=== PATIENT | female | born 1960 ===

== ENCOUNTER 2022-03-23 10:53 | Outpatient (CLI) | payer SELFPAY ==
[2022-03-23 13:20] LABS: Chlamydia DNA Amplified* NOT DETECTED (No Detected); GC DNA Amplified* NOT DETECTED (No Detected)
== END 2022-03-23 10:54 | disposition home or self-care (01) ==
PROVIDERS: Visit Provider Obstetrics & Gynecology
DX: N95.0 Postmenopausal bleeding (principal); Z11.3 Encounter for screening for infections with a predominantly sexual mode of transmission
CPT/HCPCS: 87491; 87591

== ENCOUNTER 2022-05-16 07:28 | Outpatient (CLI) | payer OTHER, SELFPAY | END 2022-05-16 07:29 | disposition home or self-care (01) | PROVIDERS: Visit Provider Family Medicine | DX: Z00.00 Encounter for general adult medical examination without abnormal findings (principal); E78.5 Hyperlipidemia, unspecified; R53.83 Other fatigue; Z13.1 Encounter for screening for diabetes mellitus | CPT/HCPCS: 80061 ==

== ENCOUNTER 2023-04-18 07:20 | Outpatient (CLI) | payer OTHER, SELFPAY ==
[2023-04-18 14:58] LABS: Chlamydia DNA Amplified* NOT DETECTED (No Detected); GC DNA Amplified* NOT DETECTED (No Detected)
== END 2023-04-18 07:21 | disposition home or self-care (01) ==
PROVIDERS: PCP Family Medicine; Visit Provider Family Medicine
DX: Z11.3 Encounter for screening for infections with a predominantly sexual mode of transmission (principal); E78.2 Mixed hyperlipidemia; R53.83 Other fatigue
CPT/HCPCS: 80053; 80061; 82306; 84443; 86592; 86703; 87491; 87591

== ENCOUNTER 2023-05-24 16:15 | Outpatient (RCR) | payer OTHER, SELFPAY | END 2023-07-27 08:58 | disposition home or self-care (01) | PROVIDERS: PCP Family Medicine; Visit Provider Orthopaedic Surgery | DX: M25.562 Pain in left knee (principal); M25.561 Pain in right knee; Z51.89 Encounter for other specified aftercare | CPT/HCPCS: 97110; 97112; 97140; 97161 ==

== ENCOUNTER 2023-06-28 11:39 | Emergency (ER) | payer OTHER, SELFPAY ==
[2023-06-28 11:50] VITALS: BP 144/83; PULSE 65; RESP 18; TEMP 36.6; O2SAT 98; BMI 26.3
[2023-06-28 12:28] LABS: Basophils Absolute Auto 0.03 K/uL (0.00-0.30); Basophils Percent Auto 0.3 % (0.0-3.0); Eosinophils Percent Auto 1.1 % (0.0-7.0); Hematocrit 37.3 % (33.0-51.0); Hemoglobin* 12.2 gm/dL (12.0-16.0); Immature Granulocytes Abs Auto 0.03 K/uL (0.00-0.30); Immature Granulocytes Pct Auto 0.3 %; Lymphocytes Absolute Auto 2.39 K/uL (0.90-2.90); Lymphocytes Percent Auto 25.6 % (20-44); Mean Corpuscular HGB Conc 33 gm/dL (32-36); Mean Corpuscular Hemoglobin 27 pg (26-34); Mean Corpuscular Volume 82 fL (80-100); Monocytes Percent Auto 8.1 % (0.0-11.0); Neutrophils Absolute Auto 6.02 K/uL (1.7-7.0); Neutrophils Percent Auto 64.6 % (42.0-72.0); Platelet Count* 236 K/uL (140-440); RDW Coefficient of Variation % 13.9 % (11.5-15.5); Red Blood Count 4.54 m/uL (4.00-5.20); White Blood Count* 9.33 K/uL (4.50-11.00)
[2023-06-28 12:29] VITALS: PULSE 69; O2SAT 97
[2023-06-28 12:30] VITALS: PULSE 70; O2SAT 97
[2023-06-28 12:32] LABS: Slide Review Reflex No
[2023-06-28 12:33] VITALS: BP 146/83; PULSE 70; O2SAT 98
[2023-06-28 12:46] LABS: Chloride* 105 mmol/L (96-114); Sodium* 137 mmol/L (135-149)
[2023-06-28 12:47] LABS: Potassium* 3.9 mmol/L (3.6-5.1)
[2023-06-28 12:49] LABS: Creatinine* 0.7 mg/dL (0.5-1.5); Est. Creatinine Clearance* 52.49; Estimated Glomerular Filt Rate 98 ml/min
[2023-06-28 12:50] LABS: Anion Gap 6 mEq/L (7-15); Blood Urea Nitrogen* 23 mg/dL (7-30); Calcium* 8.9 mg/dL (8.4-10.6); Carbon Dioxide* 26 mmol/L (20-32); Glucose* 86 mg/dL (60-115); Magnesium* 2.2 mg/dL (1.5-2.6)
[2023-06-28 13:00] VITALS: PULSE 65; O2SAT 98
[2023-06-28 13:03] VITALS: BP 147/76; PULSE 71; O2SAT 98
--- NOTE | 2023-06-28 13:05 | ED.ARRPALP ---
HPI - Arrhythmia/Palpitations General Date Seen: 06/28/23 Chief Complaint: Arrhythmia/Palpitations Stated Complaint: Heart palpitations Time Seen by Provider: 06/28/23 11:54 Source: patient Mode of arrival: ambulatory Limitations: no limitations History of Present Illness HPI narrative: Patient is a 63-year-old female with no pertinent medical problems presenting to the emergency department for palpitations. She states she has had these symptoms several times over the past several years and we were heart monitor for extended period of time several years ago but does not remember exactly when. She she states they usually only last about a week but have now been persistent for the past month and been worsening over the past 2 weeks. States they are intermittent and on her random with nothing specifically exacerbating them. Denies fevers, chills, chest pain, shortness of breath, lightheadedness, dizziness, abdominal pain, weakness, numbness. No other concerns noted at this time. No other heart issues in her history. She called the clinic today to set up a primary care appointment but was referred to the emergency department. Related Data Home Medications ?Medication ?Instructions ?Recorded ?Confirmed multivitamin with minerals-folic tab PO DAILY 06/12/23 06/12/23 acid 66.7 mcg-biotin 1,000 mcg tablet (Hair,Skin and Nails (folic acid-biotin)) Previous Rx's ?Medication ?Instructions ?Recorded trazodone 50 mg tablet 50 mg PO QDAY PRN insomnia #90 tabs 04/18/23 lisdexamfetamine 30 mg capsule 30 mg PO QAM #30 caps 05/26/23 (Vyvanse) Allergies Allergy/AdvReac Type Severity Reaction Status Date / Time No Known Drug Allergies Allergy Verified 06/12/23 17:07 Review of Systems Status of ROS: Reports: 10 or more systems reviewed and unremarkable except as noted in History and below [facility] Medical History Plantar fasciitis ?M72.2 - Plantar fascial fibromatosis (ICD-10) Post-menopausal bleeding ?N95.0 - Postmenopausal bleeding (ICD-10) History of 1 ?Z87.59 - Personal history of other complications of , childbirth and the puerperium (ICD-10) Surgical History H/O rhinoplasty ?Z98.890 - Other specified postprocedural states (ICD-10) History of tooth extraction ?K08.409 - Partial loss of teeth, unspecified cause, unspecified class (ICD-10) History of endometrial ablation (01/18/13) ?Z98.890 - Other specified postprocedural states (ICD-10) History of colonoscopy (~2011) ?Z98.890 - Other specified postprocedural states (ICD-10) History of (01/04/00) ?Z98.891 - History of uterine scar from previous surgery (ICD-10) History of tonsillectomy (~1991) ?Z90.89 - Acquired absence of other organs (ICD-10) Family History Father Heart disease Gout Myocardial infarction Coronary artery disease Aunt Breast cancer Family/Other Breast cancer Thyroid disease Sister Breast cancer Osteoarthritis Sister Thyroid disease Social History Narrative: Cis gender, heterosexual woman. Grew up in [facility] Relationship status: In a monogamous relationship with a cis-gender heterosexual man since 2020. 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 Tobacco: Former smoker quit at age 23 E-cigarettes: No Alcohol: Yes: 1-2 servings/month Illicit/recreational drugs: No Safety concerns at home or work: No Dietary restriction(s): No Exercise: Yes, hiking, walking, weights and other 3-5 days per week Smoking Status: Former smoker Non-prescribed substance use: denies use Little interest or pleasure in doing things: several days Feeling down, depressed, or hopeless: not at all Exam Narrative: Exam Narrative: Const: Well-nourished, Well-developed, in no distress Eyes: PERRL, no conjunctival injection, and symmetrical lids HENT: Atraumatic external nose and ears. Moist mucous membranes. Neck: Symmetric, trachea midline, No thyromegaly. CVS: RRR, No murmurs or gallops. Peripheral pulses 2+ and equal in all extremities RESP: Unlabored respiratory effort. Clear to auscultation bilaterally. GI: Nontender/Nondistended, No rebound or guarding. MSK:Extremities w/o deformity, Normal Active ROM Skin: Warm, Dry. No rashes or lesions. Neuro: Normal Muscle tone, No focal neurological deficits. Psych: Awake, Alert, & Oriented x3. Appropriate mood and affect. Const: Vital Signs, click to edit/add: Vital Signs - 24 hr 06/28/23 11:50 06/28/23 12:29 06/28/23 12:30 Temperature 97.9 F Pulse Rate 69 70 Pulse Rate [Right Pulse Oximeter] 65 Respiratory Rate 18 Blood Pressure Blood Pressure [Ri ght Upper Arm] 144/83 H Pulse Oximetry 98 97 97 Oxygen Delivery Me thod Room Air 06/28/23 12:33 06/28/23 13:00 06/28/23 13:03 Temperature Pulse Rate 70 65 71 Pulse Rate [Right Pulse Oximeter] Respiratory Rate Blood Pressure 146/83 H 147/76 H Blood Pressure [Ri ght Upper Arm] Pulse Oximetry 98 98 98 Oxygen Delivery Me thod Course Vital Signs Vital signs: Initial Vital Signs Temperature 97.9 F 06/28/23 11:50 Temperature Source Temporal Artery Scan 06/28/23 11:50 Pulse Rate 65 06/28/23 11:50 Respiratory Rate 18 06/28/23 11:50 Blood Pressure 144/83 H 06/28/23 11:50 Blood Pressure Mean 103 06/28/23 11:50 Blood Pressure Position Sitting 06/28/23 11:50 Pulse Oximetry 98 06/28/23 11:50 Oxygen Delivery Method Room Air 06/28/23 11:50 Vital Signs Temperature 97.9 F 06/28/23 11:50 Pulse Rate 65 06/28/23 11:50 Respiratory Rate 18 06/28/23 11:50 Blood Pressure 144/83 H 06/28/23 11:50 Pulse Oximetry 98 06/28/23 11:50 Oxygen Delivery Method Room Air 06/28/23 11:50 Temperature 97.9 F 06/28/23 11:50 Pulse Rate 71 06/28/23 13:03 Respiratory Rate 18 06/28/23 11:50 Blood Pressure 147/76 H 06/28/23 13:03 Pulse Oximetry 98 06/28/23 13:03 Oxygen Delivery Method Room Air 06/28/23 11:50 MDM - Arrhythmia/Palpitations MDM Narrative Medical decision making narrative: Patient is a 63-year-old female presenting to emergency department for palpitations. While I was in the room speaking to her she was having frequent PACs and was symptomatic every time 1 occurred. She would tell me she was having some discomfort and the PAC would be they are just about every single time. When PACs were not seen by me on the monitor she was not having any symptoms. This is likely was causing symptoms. I will order CBC, BMP, magnesium, troponin. EKG also ordered. Initial EKG showed no concerning being abnormalities. Lab work all returned showing no concerning findings. We did do a repeat EKG that caught several the premature atrial complexes. Considering these are PACs do not have any emergent concern but she should follow up with her primary care provider to follow-up 1 and possibly were a heart monitor. She is agreeable to this plan. Lab Data Labs: Lab Results 06/28/23 Range/Units 12:19 WBC 9.33 (4.50-11.00) K/uL RBC 4.54 (4.00-5.20) m/uL Hgb 12.2 (12.0-16.0) gm/dL Hct 37.3 (33.0-51.0) % MCV 82 (80-100) fL MCH 27 (26-34) pg MCHC 33 (32-36) gm/dL RDW Coeff of Gino 13.9 (11.5-15.5) % Plt Count 236 (140-440) K/uL Neut % (Auto) 64.6 (42.0-72.0) % Lymph % (Auto) 25.6 (20-44) % Fergus % (Auto) 8.1 (0.0-11.0) % Eos % (Auto) 1.1 (0.0-7.0) % Baso % (Auto) 0.3 (0.0-3.0) % Neut # (Auto) 6.02 (1.7-7.0) K/uL Lymph # (Auto) 2.39 (0.90-2.90) K/uL Fergus # (Auto) 0.80 (0.00-0.90) K/UL Eos # (Auto) 0.10 (0.00-0.50) K/uL Baso # (Auto) 0.03 (0.00-0.30) K/uL Abs Immat Gran (auto) 0.03 (0.00-0.30) K/uL Imm/Tot Granulo (auto) 0.3 % Sodium 137 (135-149) mmol/L Potassium 3.9 (3.6-5.1) mmol/L Chloride 105 (96-114) mmol/L Carbon Dioxide 26 (20-32) mmol/L Anion Gap 6 L (7-15) mEq/L BUN 23 (7-30) mg/dL Creatinine 0.7 (0.5-1.5) mg/dL Estimated Creat Clear 52.49 Estimated GFR 98 ml/min Glucose 86 (60-115) mg/dL Calcium 8.9 (8.4-10.6) mg/dL Magnesium 2.2 (1.5-2.6) mg/dL ECG Data Attestation: I personally reviewed and interpreted this ECG as follows: Prior ECG tracings: not available for review Interpretation: Initial EKG 11:59 normal sinus rhythm rate 72 beats per minute, normal intervals, normal axis, no ST or T-wave abnormalities. Repeat EKG at 13:00 sinus rhythm rate 76 beats per minute with frequent premature atrial complexes, normal intervals, normal axis, no ST wave abnormalities. Looks otherwise similar to previous EKG earlier today Discharge Plan Discharge Clinical Impression: Atrial premature complex Patient Disposition: Home, Self-Care Condition: Stable Instructions: Premature Atrial Contractions (ED) Additional Instructions: Follow-up with your primary care provider. Let them know that you are having premature atrial complexes that appear to be causing your symptoms. Your electrolytes look normal. Your primary care provider may recommend you follow-up with cardiology and get a Holter monitor. Try to limit stimulants such as caffeine at this time. Prescriptions: No Action trazodone 50 mg tablet 50 mg PO QDAY PRN (Reason: insomnia) Qty: 90 3RF Hair,Skin and Nails(FA-biotin) 66.7-1,000 mcg tablet PO DAILY lisdexamfetamine [Vyvanse] 30 mg capsule 30 mg PO QAM Qty: 30 0RF Follow Up/Referrals: Lisa Bowers MD [Primary Care Provider] - Stand Alone Forms: [facility] Inst[facility]
[2023-06-28 13:48] LABS: Troponin I* < 0.01 ng/mL (0.01-0.04)
== END 2023-06-28 14:08 | disposition home or self-care (01) ==
PROVIDERS: Emergency Provider Student in an Organized Health Care Education/Training Program; PCP Family Medicine
DX: I49.1 Atrial premature depolarization (principal)
CPT/HCPCS: 36415; 80048; 83735; 84484; 85025; 93005; 99283; 99284

== ENCOUNTER 2023-07-07 07:35 | Outpatient (CLI) | payer OTHER, SELFPAY ==
--- NOTE | 2023-07-07 07:45 | CRLHL7_ITS ---
For Patients: As a result of the Century Cures Act, medical imaging exams and procedure reports are released immediately into your electronic medical record. You may view this report before your referring provider. If you have questions, please contact your health care provider. BILATERAL SCREENING MAMMOGRAM WITH COMPUTER-AIDED DETECTION AND TOMOSYNTHESIS TECHNIQUE: CC and MLO views were obtained. These mammographic images have been obtained using full-field digital technique. These mammographic images were interpreted with the benefit of computer-aided detection. Breast Tomosynthesis was used in this interpretation. COMPARISON FILM: 05/25/22, 03/11/21, 02/01/20. FINDINGS: There are scattered areas of fibroglandular density. IMPRESSION: There is no radiographic evidence for malignancy. ASSESSMENT: BI-RADS Category 1: Negative RECOMMENDATION: Routine screening mammogram in 1 year. A lay language report of this examination will be provided to the patient. Andres Gutierrez M.D. Diagnostic Radiologist [email or web address] SP/Dictated by: Andres Gutierrez MD @ 07/10/2023 12:27:00 PM (Electronically Signed)
== END 2023-07-07 07:36 | disposition home or self-care (01) ==
LOC: MAMMO 07:36
PROVIDERS: PCP Family Medicine; Visit Provider Family Medicine
DX: Z12.31 Encounter for screening mammogram for malignant neoplasm of breast (principal)
CPT/HCPCS: 77063; 77067

== ENCOUNTER 2024-05-14 13:10 | Outpatient (CLI) | payer OTHER, SELFPAY ==
--- NOTE | 2024-05-14 15:30 | CRLHL7_ITS ---
For Patients: As a result of the Century Cures Act, medical imaging exams and procedure reports are released immediately into your electronic medical record. You may view this report before your referring provider. If you have questions, please contact your health care provider. INDICATION: .SOB, RECENT LONG DISTANCE TRAVEL TECHNIQUE: CT chest PE was acquired with 95 cc Isovue 370 IV contrast. COMPARISON: None FINDINGS: Pulmonary Arteries: Suboptimal contrast bolus timing acquisition degrades evaluation of the distal segmental and subsegmental pulmonary arteries. No large central or proximal segmental pulmonary embolus. No pulmonary hypertension or right ventricular strain. Heart and Mediastinum: The visualized portions of the thyroid are normal. No axillary or supraclavicular lymphadenopathy. No mediastinal, hilar or retrocrural lymphadenopathy. Normal heart size. Normal caliber aorta. Atherosclerotic and coronary artery calcifications. Lungs and Airways: No mass or consolidation. No endoluminal lesion. Pleura: The pleural spaces are normal. Abdomen: 15 millimeter pancreatic tail cystic focus. Incompletely characterized on this exam. Bones and soft tissues: Thoracic spondylosis. IMPRESSION: 1. Suboptimal contrast bolus timing acquisition degrades evaluation of the distal segmental and subsegmental pulmonary arteries. No large central or proximal segmental pulmonary embolus. 2. No intrathoracic mass or consolidation. 3. 15 millimeter pancreatic tail cystic focus. Incompletely characterized on this exam. However, differential considerations include pancreatic tail intraductal papillary mucinous neoplasm, versus serous cystic/mucinous neoplasm or intra pancreatic splenule. Recommend further evaluation with nonemergent pancreatic protocol MRI. Please note that all CT scans at this facility use dose modulation, iterative reconstruction, and/or weight-based dosing when appropriate to reduce radiation dose to as low as reasonably achievable. Dictated by Andres Simon MD @ 05/14/2024 4:27:24 PM (Electronically Signed)
== END 2024-05-14 13:11 | disposition home or self-care (01) ==
PROVIDERS: PCP Family Medicine; Visit Provider Family Medicine
DX: R06.02 Shortness of breath (principal); K86.2 Cyst of pancreas; R53.1 Weakness; R55 Syncope and collapse
CPT/HCPCS: 71275; 84484; 85379; Q9967

== ENCOUNTER 2024-05-21 11:51 | Outpatient (CLI) | payer OTHER, SELFPAY ==
--- NOTE | 2024-05-21 12:00 | CRLHL7_ITS ---
For Patients: As a result of the Century Cures Act, medical imaging exams and procedure reports are released immediately into your electronic medical record. You may view this report before your referring provider. If you have questions, please contact your health care provider. INDICATION: Follow-up pancreatic tail lesion TECHNIQUE: 1.5 T MRI of the abdomen performed with pre and postcontrast T1 weighted imaging; T2 weighted imaging; in and out of phase imaging; diffusion weighted imaging. 20 mL Dotarem IV COMPARISON: Chest CT 05/14/2024 FINDINGS: Lungs: The lung bases are clear. No pleural or pericardial effusion. Liver: Homogeneous liver parenchyma. No hepatic masses. Hepatic steatosis. Biliary tree and gallbladder: No intra or extrahepatic biliary dilation. Fluid-filled gallbladder without stones. Spleen: Unremarkable Pancreas: Normal pancreatic parenchyma. No pancreatic duct dilation. Multilobulated pancreatic tail cystic lesion measuring 1.7 x 1.9 cm with few thin septations. This lesion abuts the splenic parenchyma. No suspicious enhancement is appreciated. Adrenal glands: Unremarkable. Kidneys and ureters: No renal masses or hydronephrosis. Bilateral subcentimeter T2 hyperintensities too small to accurately characterize, but likely benign cysts. GI tract: No evidence of obstruction or inflammation. Vasculature: The IVC and aorta are patent. No abdominal aortic aneurysm. Lymph nodes: No lymphadenopathy. Abdominal wall: Unremarkable Peritoneum: Few subcentimeter nodular enhancing lesions adjacent to the anterior stomach body measuring up to 0.6 cm (15/45), nonspecific although possibly prominent lymph nodes. Bones: Bone marrow signal is within normal limits. IMPRESSION: 1. Multilobulated pancreatic tail cystic lesion measuring up to 1.9 cm with few thin septations may represent a side branch IPMN. No suspicious nodular enhancement is appreciated. Consider follow-up MRI in 1 year to assess stability. 2. Few subcentimeter nodular enhancing foci anterior to the stomach are nonspecific, although likely lymph nodes in the absence of malignancy history. 3. Hepatic steatosis. Dictated by Penelope Puga MD @ 05/22/2024 8:37:32 AM (Electronically Signed)
== END 2024-05-21 11:52 | disposition home or self-care (01) ==
LOC: MRI 11:53
PROVIDERS: PCP Family Medicine; Visit Provider Family Medicine
DX: K86.89 Other specified diseases of pancreas (principal); K76.0 Fatty (change of) liver, not elsewhere classified
CPT/HCPCS: 74183; A9575

== ENCOUNTER 2024-07-02 07:29 | Outpatient (CLI) | payer OTHER, SELFPAY | END 2024-07-02 07:30 | disposition home or self-care (01) | LOC: NFLDREF 07-09 08:08 | PROVIDERS: PCP Family Medicine; Referring Provider Family Medicine; Visit Provider Family Medicine | DX: E78.5 Hyperlipidemia, unspecified (principal) | CPT/HCPCS: 80053; 80061 ==

== ENCOUNTER 2024-07-17 15:36 | Outpatient (CLI) | payer OTHER, SELFPAY ==
--- NOTE | 2024-07-17 15:40 | CRLHL7_ITS ---
For Patients: As a result of the Century Cures Act, medical imaging exams and procedure reports are released immediately into your electronic medical record. You may view this report before your referring provider. If you have questions, please contact your health care provider. INDICATION: BILATERAL SCREENING MAMMMOGRAM, ASYMPTOMATIC 64 Y/O FEMALE COMPARISON: 07/07/2023, 05/25/2022, 03/11/2021 TECHNIQUE: Digital mammogram in CC and MLO projections including computer-aided detection (CAD) and tomosynthesis. BREAST COMPOSITION: The breasts are almost entirely fatty. FINDINGS: No suspicious findings. ASSESSMENT: BI-RADS 1 Negative RECOMMENDATION: Annual screening mammogram. A lay language report of this examination will be provided to the patient. Dictated by: Andres Gutierrez MD @ 07/19/2024 08:46:29 (Electronically Signed)
== END 2024-07-17 15:37 | disposition home or self-care (01) ==
LOC: MAMMO 15:37
PROVIDERS: PCP Family Medicine; Visit Provider Family Medicine
DX: Z12.31 Encounter for screening mammogram for malignant neoplasm of breast (principal)
CPT/HCPCS: 77063; 77067

== ENCOUNTER 2024-08-16 15:09 | Outpatient (CLI) | payer OTHER, SELFPAY | END 2024-08-16 15:10 | disposition home or self-care (01) | LOC: FRMREF 15:10 | PROVIDERS: PCP Family Medicine; Visit Provider Family Medicine | DX: Z79.899 Other long term (current) drug therapy (principal) | CPT/HCPCS: 82607 ==

== ENCOUNTER 2024-08-27 14:34 | Outpatient (CLI) | payer OTHER, SELFPAY | END 2024-08-27 14:35 | disposition home or self-care (01) | LOC: NFLDREF 08-28 04:12 | PROVIDERS: PCP Family Medicine; Referring Provider Family Medicine; Visit Provider Family Medicine | DX: Z13.29 Encounter for screening for other suspected endocrine disorder (principal); E66.3 Overweight; Z68.28 Body mass index [BMI] 28.0-28.9, adult | CPT/HCPCS: 84443 ==